=== PATIENT | female | born 1970 | race African-American/Black ===

== ENCOUNTER 2017-05-22 10:39 | Emergency (ER) | payer MEDICAID ==
[~2017-05-22] VITALS: Ht 154.9 cm; Wt 75.0 kg
[~2017-05-22 10:39] MED LIST: BUSP5TAB3 PO; CELE40TA PO; GABA400C5 PO; PERC5TAB12 PO; PRED50TA PO; PRIL20CA PO; SOMA350T PO
[2017-05-22 10:44] VITALS: BP 136/88; PULSE 89; RESP 16; TEMP 99.3; O2SAT 95
[2017-05-22] MEDS ORDERED: GABA400C5 PO (10:48)
[2017-05-22] MEDS ORDERED: TOPI100 PO ×2 (10:48→13:13)
[2017-05-22] MEDS ORDERED: CELE40TA PO (10:48)
[2017-05-22] MEDS ORDERED: BUSP5TAB PO (10:48)
[2017-05-22] MEDS ORDERED: SODIUM CHLOR 0.9% 1000 ML INJ 1,000 ML IV ONE (11:23)
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
--- NOTE | 2017-05-22 12:08 | RADRPT ---
EXAM DATE/TIME: 05/22/2017 11:52 [facility] COMPARISON: No previous studies available for comparison. INDICATIONS : Seizure RADIATION DOSE: 38.11 CTDIvol (mGy) MEDICAL HISTORY : Seizures. SURGICAL HISTORY : Tubal ligation. ENCOUNTER: Initial ACUITY: 1 day PAIN SCALE: 0/10 LOCATION: cranial TECHNIQUE: Multiple contiguous axial images were obtained of the head. Using automated exposure control and adj ustment of the mA and/or kV according to patient size, radiation dose was kept as low as reasonably a chievable to obtain optimal diagnostic quality images. DICOM format image data is available electro nically for review and comparison. FINDINGS: Noncontrast axial head CT demonstrates the ventricles to be normal in size and configuration with a n ormal sulcal pattern. No acute intracranial hemorrhage, acute cortical infarction, mass or midline sh ift is seen. Posterior fossa structures are unremarkable. There is a probable arachnoid cyst in the w ing of the ambient cistern on the right side. MRI is recommended for further evaluation if clinically indicated. Bone windows are unremarkable. CONCLUSION: 1. No evidence of acute intracranial pathology. No masses are identified. Possible arachnoid cyst in the ambient cistern. MRI is recommended for further evaluation if clinically indicated. 1. Home Jane MD on May 22, 2017 at 12:03 Board Certified Radiologist. This report was verified electronically.
[2017-05-22 12:10] LABS: AUTOMATED NEUTROPHIL # 6.1 TH/MM3 (1.8-7.7); BASOPHIL # 0.1 TH/MM3 (0-0.2); BASOPHIL % 0.6 % (0.0-2.0); EOSINOPHIL # 0.4 TH/MM3 (0-0.4); EOSINOPHIL % 3.9 % (0.0-4.0); HEMATOCRIT 39.6 % (35.0-46.0); HEMO FLAGS DIFF FINAL; LYMPH % 22.6 % (9.0-44.0); LYMPHOCYTE # 2.1 TH/MM3 (1.0-4.8); MEAN CELL VOLUME 90.3 FL (80.0-100.0); MEAN CORPUSCULAR HEMOGLOBIN 30.2 PG (27.0-34.0); MEAN CORPUSCULAR HGB CONC 33.5 % (32.0-36.0); MONO % 6.5 % (0.0-8.0); NEUT % 66.4 % (16.0-70.0); PLATELET COUNT 177 TH/MM3 (150-450); RED BLOOD COUNT 4.39 MIL/MM3 (4.00-5.30); RED CELL DISTRIBUTION WIDTH 13.4 % (11.6-17.2); WHITE BLOOD COUNT 9.2 TH/MM3 (4.0-11.0)
[2017-05-22 12:32] LABS: ALKALINE PHOSPHATASE 107 U/L (45-117)
[2017-05-22 12:33] LABS: ALT (GPT) 14 U/L (10-53); ANION GAP 9 MEQ/L (5-15); AST (GOT) 29 U/L (15-37); BICARBONATE 26.9 MEQ/L (21.0-32.0); BLOOD UREA NITROGEN 14 MG/DL (7-18); CHLORIDE 104 MEQ/L (98-107); GLOMERULAR FILTRATION RATE 103 ML/MIN (>89); SODIUM (NA) 140 MEQ/L (136-145); TOTAL BILIRUBIN ADULT 0.6 MG/DL (0.2-1.0)
[2017-05-22 12:34] LABS: ALCOHOL LESS THAN 3 MG/DL (0-5); POTASSIUM 4.7 MEQ/L (3.5-5.1)
[2017-05-22] MEDS ORDERED: LORazepam 1 MG TAB PO ONE (13:15)
[2017-05-22 14:22] VITALS: BP 118/64; PULSE 88; RESP 20; O2SAT 98
[2017-05-22 18:22] VITALS: BP 116/62; PULSE 81; RESP 16; O2SAT 98
--- NOTE | 2017-05-22 21:13 | EKG ---
Date Performed: 05/22/2017 Time Performed: 13:20:35 PTAGE: 46 years EKG: Sinus rhythm POSSIBLE LEFT ATRIAL ENLARGEMENT BORDERLINE LEFT AXIS DEVIATION POSSIBLE LEFT VENTRICULAR HYPERTROPH Y ABNORMAL ECG PREVIOUS TRACING : 03/21/2013 01.48 Compared to prior tracing no significant change DOCTOR: Carolyn Murphy Interpretating Date/Time 05/22/2017 21:11:35
== END 2017-05-22 18:42 | disposition home or self-care (01) ==
LOC: NEPE 10:39
DX: G40.909 Epilepsy, unspecified, not intractable, without status epilepticus (principal); F32.9 Major depressive disorder, single episode, unspecified; R94.31 Abnormal electrocardiogram [ECG] [EKG]; Z72.0 Tobacco use
CPT/HCPCS: 70450; 80053; 80307; 83605; 84484; 85025; 93005; 96360; 99285; J7030